=== PATIENT | female | born 1985 ===

== ENCOUNTER 2018-05-17 09:09 | Emergency (ER) | payer MEDICAID ==
[2018-05-17 09:22] VITALS: BP 111/74; PULSE 70; RESP 16; TEMP 98.5; O2SAT 100
--- NOTE | 2018-05-17 11:51 | C.PDOC ---
History Of Present Illness 32 y/o female presents to the ER complaining of warm feeling over right breast which has been present for the past few days. Contrary to triage, patient denies having pain to right breast. Furthermore, patient denies having discharge from nipple, fever, and chills. Time Seen by Provider: 05/17/18 09:21 Chief Complaint (Nursing): Breast Problem History Per: Patient History/Exam Limitations: no limitations Onset/Duration Of Symptoms: Days Current Symptoms Are (Timing): Still Present Severity: Moderate Past Medical History Reviewed: Historical Data, Nursing Documentation, Vital Signs Vital Signs: Last Vital Signs Temp 98.5 F 05/17/18 09:15 Pulse 70 05/17/18 09:15 Resp 16 05/17/18 09:15 BP 111/74 05/17/18 09:15 Pulse Ox 100 05/17/18 09:15 - Medical History PMH: No Chronic Diseases Surgical History: No Surg Hx Family History: States: No Known Family Hx - Social History Hx Alcohol Use: Yes Hx Substance Use: No - Immunization History Hx Tetanus Toxoid Vaccination: No Hx Influenza Vaccination: No Hx Pneumococcal Vaccination: No Review Of Systems Except As Marked, All Systems Reviewed And Found Negative. Constitutional: Negative for: Fever, Chills Musculoskeletal: Positive for: Other (warmness over right breast) Physical Exam - Physical Exam Appears: Non-toxic, No Acute Distress Skin: Normal Color, Warm, Dry Head: Atraumatic, Normacephalic Eye(s): bilateral: Normal Inspection Nose: Normal Oral Mucosa: Moist Neck: Supple Chest: Symmetrical, Other (mild warmness in upper outer quadrant of right breast, mild erythema to right breast, chaperoned by female nurse) Cardiovascular: Rhythm Regular Respiratory: Normal Breath Sounds, No Rales, No Rhonchi, No Wheezing Neurological/Psych: Oriented x3, Normal Speech ED Course And Treatment O2 Sat by Pulse Oximetry: 100 (RA) Pulse Ox Interpretation: Normal Medical Decision Making Medical Decision Making: Patient has been discharged with prescription for Cephalexin and instructed to follow up with PMD or clinic in 2-3 days. Disposition - [facility] - Disposition: HOME/ ROUTINE Disposition Time: 09:50 Condition: GOOD Additional Instructions: HOMAR ROMAN, thank you for letting us take care of you today. The emergency medical care you received today was directed at your acute symptoms. If you were prescribed any medication, please fill it and take as directed. It may take several days for your symptoms to resolve. Return to the Emergency Department if your symptoms worsen, do not improve, or if you have any other problems. Please contact your doctor or call one of the physicians/clinics you have been referred to that are listed on the Patient Visit Information form that is included in your discharge packet. Bring any paperwork you were given at discharge with you along with any medications you are taking to your follow up visit. Our treatment cannot replace ongoing medical care by a primary care provider outside of the emergency department. Thank you for allowing the [facility] team to be part of your care today. Follow up with your clinic in 2-3 days for re-evaluation and further management. HOMAR ROMAN, katie por deloyrnos salo kerr. La atencin mdica de emergencia que recibi hoy estaba dirigida a leighann sntomas agudos. Si le prescribieron algn medicamento, llnelo y tome segn las indicaciones. Leighann sntomas pueden tardar varios [place] en resolverse. Regrese al Departamento de Emergencia si leighann sntomas empeoran, no mejoran o si tiene algn otro problema. Comunquese con love mdico o llame a elena de los mdicos / clnicas a los que balderas sido referido que figura en el formulario de Informacin de visita del paciente que se incluye en love paquete de nica. Traiga todos los documentos que recibi al momento del nica junto con los medicamentos que est tomando en love visita de seguimiento. Nuestro tratamiento no puede reemplazar la atencin mdica en curso por un proveedor de atencin primaria fuera del departamento de emergencia. Katie por permitir que el equipo de [facility] sea parte de love cuidado hoy. Annette un seguimiento con love clnica en 2-3 smallwood para wyatt nueva evaluacin y wyatt mayor administracin. Prescriptions: Cephalexin [cephalexin] 500 mg PO TID #21 cap Instructions: Cellulitis (ED) Forms: Gen Discharge Inst Danish, [facility] (Danish) Print Language: KAZAKH - Clinical Impression Clinical Impression: Cellulitis of breast - Scribe Statement The provider has reviewed the documentation as recorded by the Chery Sosa Provider Attestation: All medical record entries made by the Chery were at my direction and personally dictated by me. I have reviewed the chart and agree that the record accurately reflects my personal performance of the history, physical exam, medical decision making, and the department course for this patient. I have also personally directed, reviewed, and agree with the discharge instructions and disposition.
== END 2018-05-17 10:05 | disposition home or self-care (01) ==
LOC: C.ER 09:09
DX: N61.0 Mastitis without abscess (principal)